=== PATIENT | female | born 1985 | race Caucasian/White ===

== ENCOUNTER → 2016-12-22 | Outpatient (CLI) | payer BC ==
--- NOTE | 2016-12-22 12:46 | DI ---
XR WRIST COMPLETE MIN 3VW,12/22/2016 10:41 AM: Clinical History: Left wrist carpal tunnel syndrome. Previous Exam: None at this facility. Findings: 3 views of left wrist are obtained, and demonstrate anatomic alignment without fractures. Surrounding soft tissues are unremarkable. Impression: Normal left wrist.
== END ==
LOC: ORTHO 10:52
PROVIDERS: ATTEND Orthopaedic Surgery
DX: G56.02 Carpal tunnel syndrome, left upper limb (principal); M77.12 Lateral epicondylitis, left elbow
CPT/HCPCS: 73110

== ENCOUNTER 2017-01-18 11:16 | Day surgery (SDC) | payer BC ==
[2017-01-18] MEDS ORDERED: Lactated Ringers 1,000 ML PRIMARY IV ONE (11:23)
[2017-01-18] MEDS ORDERED: ceFAZolin Inj 2gm (Premix) 50 ML IV ONE (11:23)
[2017-01-18] MEDS ORDERED: LIDOCAINE W/ SODIUM BICARB 0.5 ML SYR ONE (11:23)
[2017-01-18] MEDS ORDERED: fentaNYL Inj 100 MCG/2 ML VIAL ONE (12:54)
[2017-01-18] MEDS ORDERED: MIDAZOLAM 5 MG/1 ML ONE (12:54)
[2017-01-18] MEDS ORDERED: LIDOCAINE 2%/ EPI 1:200,000 - 20 ML VIAL ONE (12:54)
[2017-01-18] MEDS ORDERED: DEXAMETHASONE SOD PHOSPHATE 4 MG/1 ML VIAL ONE (12:55)
[2017-01-18] MEDS ORDERED: BUPivacaine Inj 0.5% PF (5mg/ml) 10ml vial ONE (13:03)
--- NOTE | 2017-01-18 13:44 | CRNA.PROCE ---
Nerve Block Documentation - - Type of Nerve Block Used: Left Axillary Block Position for Nerve Block: Supine Moniters Used During Block: EKG, SPO2, NIBP Oxygen Sumpplented: Yes Sedation Used - Enter Amount in Comment Field: Midazolam (mg): Yes (2mg), Fentanyl (mcg): Yes (50mcg) Skin Prep Used: ChloroPrep Draped: No Technique: Nerve Stimulator Nerve Block Needle Used: 40 mm ProBlk II Stimulation Hz: 2 Stimulation Staring mA: 1.2 Stimulation Ending mA: 0.4 Local Anesthetic - Enter Amt in Comment Field: 2 % Xylocaine with Epinephrine 1: 200,000 (mL): Yes (20ml), 2 % Mepivacaine (mL): Yes (20ml) Additives to Nerve Blocks: Dexamethasone (mg): Yes (2ml(8mg))
[2017-01-18] MEDS ORDERED: KETOROLAC 30 MG/1 ML VIAL ONE (13:49)
[2017-01-18] MEDS ORDERED: BISACODYL 5 MG TABLET PO PRN (14:07)
[2017-01-18] MEDS ORDERED: MAG HYDROX/AL HYDROX/SIMETH 30 ML SUSP PO PRN (14:07)
[2017-01-18] MEDS ORDERED: BISACODYL 10 MG SUPPOSITORY RECTAL PRN (14:07)
[2017-01-18] MEDS ORDERED: CALCIUM CARBONATE 500 MG (TUMS) CHEWABLE TABLET PO PRN (14:07)
[2017-01-18] MEDS ORDERED: ACETAMINOPHEN 325 MG TABLET PO PRN (14:07)
[2017-01-18] MEDS ORDERED: IBUPROFEN 400 MG TABLET PO PRN (14:07)
[2017-01-18] MEDS ORDERED: diphenhydrAMINE 25 MG CAPSULE PO PRN (14:07)
[2017-01-18] MEDS ORDERED: HYDROcodone-APAP 5 MG -325 MG TABLET PO PRN (14:07)
[2017-01-18] MEDS ORDERED: ONDANSETRON 4 MG/2 ML VIAL IVP PRN (14:07)
[2017-01-18] MEDS ORDERED: NORMAL SALINE 10 ML SYRINGE FLUSH IVP PRN (14:07)
[2017-01-18] MEDS ORDERED: Prochlorperazine Tab 10 MG TAB PO PRN (14:07)
[2017-01-18] MEDS ORDERED: MORPHINE SULFATE 2 MG/1 ML IVP PRN (14:07)
[2017-01-18] MEDS ORDERED: Ondansetron ODT Tab 8 MG TAB PO PRN (14:07)
[2017-01-18] MEDS ORDERED: Lactated Ringers 1,000 ML PRIMARY IV SCH (14:15)
[2017-01-18 15:41] VITALS: RESP 16
[2017-01-18 15:43] VITALS: TEMP 98.3
== END 2017-01-18 14:50 | disposition home or self-care (01) ==
LOC: SDSC 11:16
PROVIDERS: ATTEND Orthopaedic Surgery
DX: G56.02 Carpal tunnel syndrome, left upper limb (principal)
CPT/HCPCS: 64721; 84703; J0690; J1100; J1885; J2250; J2704; J3010; J3490; J7120

== ENCOUNTER 2018-09-05 08:00 | Observation (INO) ==
[~2018-09-05 08:00] MED LIST: BUPIVACAINE 0.25% W/ EPI - 10 ML VIAL ONE; CefOXitin Inj 2 GM in Sodium Chloride 0.9% 100 ML IV ONE; LIDOCAINE HCL 2 % 10 ML JELLY URO-JECT TOPICAL ONE; LIDOCAINE W/ SODIUM BICARB 0.5 ML SYR ONE; LIDOCAINE W/ SODIUM BICARB 0.5 ML SYR SUBD PRN; Lactated Ringers 2,000 ML PRIMARY IV ONE; Nasal Sanitizer POPSWAB ampule 3 AMP (Nozin) PREOP DOSE ENOS SCH; Sodium Chloride 0.9% 100 ML IV ONE
[2018-09-05] MEDS: Lactated Ringers 1,000 ML PRIMARY IV SCH ×3 (08:08→23:11)
[2018-09-05] MEDS ORDERED: ROCURONIUM 10 MG/1 ML - 5 ML VIAL IVP ONE ×2 (08:33→09:45)
[2018-09-05 08:34] LABS: BASOPHILS # (AUTO) 0.04 10*3/UL; BASOPHILS % (AUTO) 0.6 % (0-1); EOSINOPHILS # (AUTO) 0.15 10*3/UL; EOSINOPHILS % (AUTO) 2.1 % (0-8); Hematocrit [HCT] 42.7 % (37.0-47.0); Hemoglobin [HGB] 14.4 g/dL (12.0-16.0); LYMPHOCYTES # (AUTO) 1.65 10*3/uL; MEAN CORPUSCULAR HEMOGLOBIN 31.6 PG (27-31); MEAN CORPUSCULAR HGB CONC 33.7 g/dL (33-37); MEAN CORPUSCULAR VOLUME 93.8 FL (81-99); MEAN PLATELET VOLUME 9.7 FL (7.4-12.2); MONOCYTES # (AUTO) 0.49 10*3/UL (0.3-0.8); NEUTROPHILS # (AUTO) 4.65 10*3/UL; NEUTROPHILS % (AUTO) 66.4 % (50-80); PLATELET MORPHOLOGY COMMENT NORMAL MORPHOLOGY (NORM); RBC MORPHOLOGY COMMENT NORMAL MORPHOLOGY (NORM); RED BLOOD COUNT 4.55 10^6/uL (4.20-5.40); WBC MORPHOLOGY COMMENT NORMAL MORPHOLOGY (NORM)
[2018-09-05] MEDS ORDERED: LIDOCAINE MPF 2% - 5 ML (20 MG/1 ML) ONE (08:39)
[2018-09-05] MEDS ORDERED: MIDAZOLAM HCL 2 MG/2 ML VIAL ONE (08:39)
[2018-09-05] MEDS ORDERED: PROPOFOL 10 MG/1 ML (200 MG/20 ML) VIAL IV ONE (08:39)
[2018-09-05] MEDS ORDERED: fentaNYL Inj 250 MCG/5 ML VIAL ONE (08:39)
[2018-09-05] MEDS ORDERED: KETAMINE HCL 100 MG/2 ML SYRINGE IV ONE (08:41)
[2018-09-05] MEDS ORDERED: fentaNYL Inj 100 MCG/2 ML VIAL IVP PRN (08:53)
[2018-09-05] MEDS ORDERED: LIDOCAINE W/ SODIUM BICARB 0.5 ML SYR SUBD PRN (08:53)
[2018-09-05] MEDS ORDERED: ONDANSETRON 4 MG/2 ML VIAL IVP PRN (08:53)
[2018-09-05] MEDS ORDERED: PROMETHAZINE 25 MG/1 ML VIAL IM PRN (08:53)
[2018-09-05] MEDS ORDERED: Lactated Ringers 1,000 ML PRIMARY IV SCH (09:00)
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
[2018-09-05] MEDS ORDERED: KETOROLAC 30 MG/1 ML VIAL ONE (09:20)
[2018-09-05] MEDS ORDERED: Opium-Belladonna 30-16.2mg 1 EACH SUPP.RECT RECTAL ONE (09:30)
[2018-09-05] MEDS ORDERED: LIDOCAINE HCL 2 % 10 ML JELLY URO-JECT TOPICAL ONE (09:30)
[2018-09-05] MEDS ORDERED: HYDROmorphone 2 MG/1 ML ONE (09:46)
[2018-09-05] MEDS ORDERED: SUGAMMADEX SODIUM 200 MG/2 ML VIAL IV ONE (09:46)
[2018-09-05] MEDS ORDERED: Lactated Ringers 1,000 ML PRIMARY IV ONE (09:48)
[2018-09-05] MEDS ORDERED: HYDROcodone-APAP 5 MG -325 MG TABLET PO PRN (10:50)
[2018-09-05] MEDS ORDERED: IBUPROFEN 800 MG TABLET PO PRN (10:50)
[2018-09-05] MEDS ORDERED: LIDOCAINE HCL 2 % 10 ML JELLY URO-JECT TOPICAL PRN (10:50)
[2018-09-05] MEDS ORDERED: oxyCODONE-ACETAMINOPHEN 5-325 TAB PO PRN (10:50)
--- NOTE | 2018-09-05 11:08 | CRNA.PROGR ---
Anesthesia Time - Procedure/Recovery Time Start Date: 09/05/18 End Date: 09/05/18 Anesthesia : Time In: 09:03 Anesthesia : Time Out: 10:57 Anesthesia : Total Time: 114 - Total Anesthesia Time Total Anesthesia Time (minutes): 114 - Other Weight: 70.307 kg Height: 5 ft 3 in Body Mass Index (BMI): 27.4 Physical Status: P2 Anesthesia Type: General Anesthesia : ET
--- NOTE | 2018-09-05 11:08 | CRNA.PROGR ---
Anesthesia Recovery Phase I - Post Anesthesia Evaluation Patient's Condition on Arrival in Phase I: Stable Pain Level: 0
[2018-09-05] MEDS ORDERED: HYDROcodone-APAP 5 MG -325 MG TABLET PO ONE (12:24)
[2018-09-05] MEDS: KETOROLAC 15 MG/1 ML VIAL IVP SCH ×2 (14:39→20:55)
[2018-09-05] MEDS: Ondansetron ODT Tab 8 MG TAB PO PRN (17:23)
--- NOTE | 2018-09-05 18:40 | PDOC(PROG) ---
Subjective Post Op Day: postoperative day 0 Pain Management: IV Toradol Vallejo Catheter: No Flatus: No Diet: Clear Liquids Ambulating: Yes Concerns / Additional Information: The patient did ambulate and then had some emesis afterwards. She has some abdominal discomfort but 3 on a scale of 1-10. The patient has not voided yet. Objective - General General Appearance: POSITIVE: No Acute Distress, Cooperative - Abdomen Other Abdominal Exam Details: Soft and appropriately tender. No guarding or rebound not rigid Assesstment / Plan Assessment / Plan: Assessment: Postoperative #0 status post robotic-assisted laparoscopic hysterectomy and bilateral salpingectomy and normal cystoscopy afterwards. The patient did have some nausea and emesis. Zofran was given. Appropriate amount of discomfort or pain. Plan: Continue to observe I will ask the nurse to scan the patient's bladder if she does not void by 2000 hrs. The patient may need an IV bolus of fluid. Patient currently is receiving 125 an hour of LR. Continue to observe closely.
[2018-09-05] MEDS: HYDROmorphone 2 MG/1 ML IVP PRN ×2 (18:42→21:03)
[2018-09-05] MEDS: Promethazine Tab 25 MG TAB PO PRN (19:41)
[2018-09-05] MEDS ORDERED: Lactated Ringers 500 ML PRIMARY IV ONE (23:10)
[2018-09-06] MEDS: Promethazine Tab 25 MG TAB PO PRN (01:05)
[2018-09-06] MEDS: HYDROmorphone 2 MG/1 ML IVP PRN ×2 (01:15→05:32)
[2018-09-06] MEDS: KETOROLAC 15 MG/1 ML VIAL IVP SCH ×2 (04:02→10:04)
[2018-09-06 04:41] LABS: BASOPHILS # (AUTO) 0.02 10*3/UL; BASOPHILS % (AUTO) 0.2 % (0-1); EOSINOPHILS # (AUTO) 0.02 10*3/UL; EOSINOPHILS % (AUTO) 0.2 % (0-8); Hematocrit [HCT] 35.7 % (37.0-47.0); Hemoglobin [HGB] 11.7 g/dL (12.0-16.0); LYMPHOCYTES # (AUTO) 1.43 10*3/uL; MEAN CORPUSCULAR HEMOGLOBIN 31.2 PG (27-31); MEAN CORPUSCULAR HGB CONC 32.8 g/dL (33-37); MEAN CORPUSCULAR VOLUME 95.2 FL (81-99); MEAN PLATELET VOLUME 9.7 FL (7.4-12.2); MONOCYTES # (AUTO) 0.44 10*3/UL (0.3-0.8); MONOCYTES % (AUTO) 4.8 % (5-15); NEUTROPHILS # (AUTO) 7.22 10*3/UL; NEUTROPHILS % (AUTO) 78.9 % (50-80); RED BLOOD COUNT 3.75 10^6/uL (4.20-5.40)
[2018-09-06 05:15] LABS: PLATELET MORPHOLOGY COMMENT NORMAL MORPHOLOGY (NORM); RBC MORPHOLOGY COMMENT NORMAL MORPHOLOGY (NORM); WBC MORPHOLOGY COMMENT NORMAL MORPHOLOGY (NORM)
[2018-09-06 05:16] LABS: BLOOD UREA NITROGEN 6 mg/dL (7-22)
[2018-09-06] MEDS: Lactated Ringers 1,000 ML PRIMARY IV SCH ×2 (05:20→13:00)
[2018-09-06] MEDS: Ondansetron ODT Tab 8 MG TAB PO PRN (05:26)
[2018-09-06 09:11] VITALS: RESP 16
--- NOTE | 2018-09-06 10:13 | PDOC(PROG) ---
Subjective Post Op Day: 1 Pain Management: IV Toradol Vallejo Catheter: No Flatus: Yes Diet: Clear Liquids (Crackers. Patient desires regular diet) Ambulating: Yes Concerns / Additional Information: Patient's nausea has improved significantly and patient would like to eat regular diet. She would like to go home later today if she tolerates the regular diet. Objective - General General Appearance: POSITIVE: No Acute Distress, Cooperative - Cardiovacular Cardiovascular Exam: POSITIVE: RRR Edema: No Pedal Edema Extremities: Negative Soraida's - Bilaterally - Respiratory Respiratory Exam: POSITIVE: Decreased Breath Sounds (In bases). NEGATIVE: Wheezes - Abdomen Bowel Sounds: Present - - Additional Details: Abdomen is soft with positive bowel sounds. No guarding or rebound. Assesstment / Plan Assessment / Plan: Assessment: Postoperative day #1 status post robotic-assisted laparoscopic hysterectomy and bilateral salpingectomy. Patient does have a history of tobacco use and does have some atelectasis or decreased breath sounds in the bases. No wheezes. Patient's H&H is good. Patient's platelets are minimally low at 136,000. They were above the 150,000 yesterday with preop labs. Patient has been afebrile and vital signs are normal Patient would like to eat a regular diet. The patient is voiding. She is drinking fluids. Plan: Albuterol nebulizer now Regular diet Observe and hopefully patient may be able to go home later today with discharge later today. The patient should see me on 09/11/2018 at 1345 hrs. Show time at 1330 hrs. Usual postoperative instructions. The patient should go to the emergency room for fever, increasing abdominal pain or significant vaginal bleeding. Discharge medications: Hydrocodone/Tylenol 1-2 tabs by mouth every 6 hours when necessary pain Ibuprofen 800 mg 1 tablet by mouth 3 times a day with food or milk for 5 days th en 3 times a day as needed Colace 100 mg capsule 1 capsule by mouth daily to twice a day when necessary constipation Promethazine 25 mg tablet one half tablet to one tablet by mouth every 6 hours when necessary nausea The patient should have pelvic rest for 10 weeks. No vaginal intercourse for 10 weeks to allow for healing of the vaginal cuff from the hysterectomy The patient should make an appointment for a postop appointment about 8 weeks postoperatively. The patient will have a repeat CBC to check platelets in one week. If the patient's platelets continued to be low, the patient will be referred to her primary care provider for evaluation.
[2018-09-06] MEDS ORDERED: ALBUTEROL SULFATE 2.5 MG/3 ML NEB SCH (11:00)
--- NOTE | 2018-09-06 11:08 | PDOC(PROG) ---
Assesstment / Plan Assessment / Plan: The patient felt better after the albuterol nebulizer. I called in a prescription for albuterol inhaler 1-2 puffs 4 times a day when necessary shortness of breath dispense 1 and 1 refill.
[2018-09-06 13:14] VITALS: BP 114/69; TEMP 98.6; O2SAT 95
== END 2018-09-06 15:09 | disposition home or self-care (01) ==
LOC: OR 08:00 → MED/SURG 08:00 → OPS 08:03
PROVIDERS: ADMIT Obstetrics & Gynecology; ATTEND Obstetrics & Gynecology